=== PATIENT | male | born 1950 | race Caucasian/White ===

== ENCOUNTER 2017-08-10 09:56 | Day surgery (SDC) | payer MEDICARE ==
[2017-08-10] MEDS: PROPARACAINE 0.5% OPHTH SOL 15ML OD (10:25)
[2017-08-10] MEDS: OFLOXACIN 0.3 % (OCUFLOX) OPTH SOL 5ML OD (10:26)
[2017-08-10] MEDS: TROPICAMIDE 1% OPHTH SOLN 2ML OD (10:26)
[2017-08-10] MEDS: PHENYLEPHRINE 2.5% OPHTH SOL 2ML OD (10:26)
[2017-08-10] MEDS ORDERED: MIDAZOLAM INJ 2 MG/2 ML VIAL (J2250) As Ordered (11:03)
[2017-08-10] MEDS ORDERED: fentaNYL 100 MCG/2 ML INJECTION (J3010) As Ordered (11:33)
[2017-08-10] MEDS: POVIDONE-IODINE 5% OPHTH PREP SOL 30ML As Ordered (12:04)
[2017-08-10] MEDS: ACETYLCHOLINE OPHTH SOLN 1% 2ML (MIOCHOL-E) As Ordered (12:05)
[2017-08-10] MEDS: BALANCED SALT IRRIGATION SOLUTION 500ML BAG (FOR OR EYE MACHINE) As Ordered (12:05)
[2017-08-10] MEDS: DUOVISC (0.50ML VISCOAT/0.55ML PROVISC) OPHTH KIT As Ordered (12:05)
[2017-08-10] MEDS: CEFUROXIME 1MG/0.1ML INTRACAMERAL INJ As Ordered (12:05)
[2017-08-10] MEDS: LIDOCAINE 0.75%/EPINEPHRINE 0.025% IN BSS 1ML SYR INTRACAMERAL (OR ONLY) As Ordered (12:05)
== END 2017-08-10 13:13 | disposition home or self-care (01) ==
LOC: M SDC 09:56
DX: H25.11 Age-related nuclear cataract, right eye (principal); I10 Essential (primary) hypertension; E03.9 Hypothyroidism, unspecified; K21.9 Gastro-esophageal reflux disease without esophagitis; Z85.07 Personal history of malignant neoplasm of pancreas; Z92.21 Personal history of antineoplastic chemotherapy; Z92.3 Personal history of irradiation; Z79.899 Other long term (current) drug therapy; Z79.82 Long term (current) use of aspirin
CPT/HCPCS: 66984

== ENCOUNTER 2018-03-15 06:28 | Day surgery (SDC) | payer MEDICARE ==
[2018-03-15] MEDS: PHENYLEPHRINE 2.5% OPHTH SOL 2ML OS (07:04)
[2018-03-15] MEDS: OFLOXACIN 0.3 % (OCUFLOX) OPTH SOL 5ML OS (07:05)
[2018-03-15] MEDS: PROPARACAINE 0.5% OPHTH SOL 15ML OS (07:05)
[2018-03-15] MEDS: TROPICAMIDE 1% OPHTH SOLN 2ML OS (07:05)
[2018-03-15] MEDS ORDERED: MIDAZOLAM INJ 2 MG/2 ML VIAL (J2250) As Ordered (07:54)
[2018-03-15] MEDS ORDERED: fentaNYL 100 MCG/2 ML INJECTION (J3010) As Ordered (07:54)
[2018-03-15] MEDS: POVIDONE-IODINE 5% OPHTH PREP SOL 30ML As Ordered (08:11)
[2018-03-15] MEDS: LIDOCAINE 0.75%/EPINEPHRINE 0.025% IN BSS 1ML SYR INTRACAMERAL (OR ONLY) As Ordered (08:14)
[2018-03-15] MEDS: BALANCED SALT IRRIGATION SOLUTION 500ML BAG (FOR OR EYE MACHINE) As Ordered (08:16)
[2018-03-15] MEDS: DUOVISC (0.50ML VISCOAT/0.55ML PROVISC) OPHTH KIT As Ordered (08:18)
[2018-03-15] MEDS: ACETYLCHOLINE OPHTH SOLN 1% 2ML (MIOCHOL-E) As Ordered (08:26)
[2018-03-15] MEDS: CEFUROXIME 1MG/0.1ML INTRACAMERAL INJ As Ordered (08:26)
== END 2018-03-15 09:07 | disposition home or self-care (01) ==
LOC: M SDC 06:28
DX: H25.12 Age-related nuclear cataract, left eye (principal); H52.12 Myopia, left eye; H27.8 Other specified disorders of lens; I10 Essential (primary) hypertension; E78.5 Hyperlipidemia, unspecified; E03.9 Hypothyroidism, unspecified; K21.9 Gastro-esophageal reflux disease without esophagitis; R06.83 Snoring; Z79.899 Other long term (current) drug therapy; Z79.82 Long term (current) use of aspirin; Z92.21 Personal history of antineoplastic chemotherapy; Z92.3 Personal history of irradiation; Z85.07 Personal history of malignant neoplasm of pancreas; Z87.81 Personal history of (healed) traumatic fracture; Z87.891 Personal history of nicotine dependence
CPT/HCPCS: 66982